=== PATIENT | female | born 1980 | race Two or more races ===

== ENCOUNTER 2018-02-24 06:40 | Emergency (ER) | payer MEDICAID ==
[~2018-02-24] VITALS: Ht 162.6 cm; Wt 76.7 kg
--- NOTE | 2018-02-24 06:56 | Emergency Room Report ---
History of Present Illness General Chief Complaint: Lower Extremity Injury Source: Patient Present Illness HPI The patient presents with increased right foot pain. She takes Advil or Tylenol. The pain is 8/10. It's in her right heel. Denies any trauma. She says sometimes radiates up her leg and also she feels it in her upper back when she has trouble. She denies any fever. It's worse when she lifts heavy objects. More pain in AMs. Has had intermittently in past. No noted trauma. No dysuria, chest pain, other joint pain, rashes, calf pain, edema. dyspnea, polies. 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 Period: february 15 Now: No Reviewed Nursing Documentation: PMH: Agreed; PSxH: Agreed Review of Systems Constitutional: Denies: fever Respiratory: Denies: shortness of breath Genitourinary: Reports: see HPI Musculoskeletal: Reports: see HPI Neurological: Denies: tingling All Other Systems: negative except mentioned in HPI Physical Exam Vital Signs Date Time Temp Pulse Resp B/P (MAP) Pulse Ox O2 Delivery O2 Flow Rate FiO2 02/24/18 06:43 97.3 78 18 129/83 99 Room Air 97.3 Sp02 EP Interpretation: reviewed, normal General Appearance: well appearing, no apparent distress, GCS 15 Head: normocephalic, atraumatic Eyes: bilateral eye normal inspection, bilateral eye PERRL ENT: hearing grossly normal, normal voice, moist mucus membranes Neck: full range of motion, supple Respiratory: lungs clear, no respiratory distress, speaking full sentences Cardiovascular #1: regular rate, rhythm Cardiovascular #2: 2+ radial (L), 2+ dorsalis pedis (R) Gastrointestinal: normal inspection Genitourinary: no CVA tenderness Musculoskeletal: no calf tenderness, other - tender R heel, ROM full, no deformity, ankle without tenderness Neurologic: alert, motor strength/tone normal, sensory intact Psychiatric: mood/affect normal Skin: no rash Medical Decision Making Diagnostic Impression: Primary Impression: Plantar fasciitis of right foot ER Course The patient presents with nontraumatic right heel pain. Differential includes plantar fasciitis, tendinitis, heel spur amongst others. The distribution does not appear like out. She'll be treated with Motrin and an x-ray will be obtained. Xray without spur. Improved. Patient stable for outpatient observation and treatment. Other X-Ray Diagnostic Results Other X-Ray Diagnostic Results : X-Ray ordered: R foot # of Views/Limited Vs Complete: 3 View Indication: Pain Interpretation: no dislocation, no soft tissue swelling, no fractures Impression: No acute disease Electronically Signed by: Júnior Whitaker MD Last Vital Signs Date Time Temp Pulse Resp B/P (MAP) Pulse Ox O2 Delivery O2 Flow Rate FiO2 02/24/18 07:23 207.1 78 18 129/83 99 Room Air Status: improved Disposition: HOME, SELF-CARE Condition: Improved Scripts Ibuprofen* (MOTRIN*) 600 Mg Tablet 600 MG ORAL Q6H PRN for For Pain, #20 TAB Prov: Júnior Whitaker M.D. 02/24/18 Júnior Whitaker M.D. Feb 24, 2018 06:56
[2018-02-24] MEDS ORDERED: IBUPROFEN600 MG ORAL (07:20)
[2018-02-24 07:23] VITALS: BP 129/83
--- NOTE | 2018-02-24 10:56 | Diagnostic Imaging Report ---
Indication: Foot pain Technique: 3 views right foot Comparison: none Findings: No acute fractures. No dislocations. The joint spaces are preserved. Impression: No acute process. This agrees with the preliminary interpretation provided by the emergency room physician
== END 2018-02-24 07:25 | disposition home or self-care (01) ==
LOC: EMR 07:16
DX: M72.2 Plantar fascial fibromatosis (principal)
CPT/HCPCS: 99283